=== PATIENT | female | born 1980 | race Caucasian/White ===

== ENCOUNTER 2017-07-15 11:05 | Emergency (ER) | payer MEDICAID ==
[~2017-07-15] VITALS: Ht 152.4 cm; Wt 55.0 kg
[2017-07-15 12:07] VITALS: BP 132/85
[2017-07-15] MEDS ORDERED: CARBAMIDE PEROXIDE 6.5% OTIC SOLN 15ML EACH EAR ONE (13:45)
[2017-07-15] MEDS ORDERED: CARBAMIDE PEROXIDE 6.5% OTIC SOLN 15ML EACH EAR SCH (14:30)
== END 2017-07-15 15:30 | disposition home or self-care (01) ==
LOC: ER 11:40
DX: H61.23 Impacted cerumen, bilateral (principal); E78.00 Pure hypercholesterolemia, unspecified
CPT/HCPCS: 69209; 99282

== ENCOUNTER 2017-08-04 08:24 | Emergency (ER) | payer MEDICAID ==
[~2017-08-04] VITALS: Ht 152.4 cm; Wt 55.0 kg
[2017-08-04 10:31] LABS: CLARITY URINE CLOUDY (CLEAR); COLOR URINE YELLOW (YELLOW); KETONES URINE NEGATIVE (NEGATIVE); LEUKOCYTE ESTERASE URINE 3+ (NEGATIVE); NITRITE URINE POSITIVE (NEGATIVE); OCCULT BLOOD URINE 3+ (NEGATIVE); PROTEIN URINE TRACE (NEGATIVE); SPECIFIC GRAVITY URINE 1.025 (1.005-1.030)
[2017-08-04 10:52] LABS: BASOPHILS % 0.4 % (0.0-2.0); EOSINOPHILS % 1.4 % (0.0-5.0); HEMATOCRIT. 40.3 % (36.0-48.0); HEMOGLOBIN. 13.3 g/dL (12.0-16.0); MEAN CORPUSCULAR HEMOGLOBIN 30.5 pg (28.0-32.0); MEAN CORPUSCULAR VOLUME 92.3 fL (81.0-99.0); MEAN PLATELET VOLUME 8.3 fl (7.4-10.4); MONOCYTES % 5.8 % (2.0-8.0); NEUTROPHILS % 75.4 % (40.0-76.0); PLATELET 289 x1000/uL (130-400); RED BLOOD CELL COUNT 4.36 mill/uL (4.2-5.4); RED CELL DISTRIBUTION WIDTH 13.1 % (11.6-14.6)
[2017-08-04 10:57] LABS: PROTHROMBIN TIME 10.7 sec (9.4-11.6)
[2017-08-04 11:04] LABS: HCG SCREEN NEGATIVE
[2017-08-04 11:07] LABS: CHLORIDE 105 mEq/L (98-107); ETHANOL BLOOD < 10 mg/dL
[2017-08-04 12:01] LABS: *AMPHETAMINES SCREEN URINE NEGATIVE (NEGATIVE); *BARBITURATES SCREEN URINE NEGATIVE (NEGATIVE); *BENZODIAZEPINES SCREEN URINE NEGATIVE (NEGATIVE); *COCAINE SCREEN URINE NEGATIVE (NEGATIVE); CANNABINOID URINE SCREEN NEGATIVE (NEGATIVE); METHADONE URINE SCREEN NEGATIVE (NEGATIVE); OPIATES URINE SCREEN NEGATIVE (NEGATIVE); PHENCYCLIDINE URINE SCREEN NEGATIVE (NEGATIVE)
[2017-08-04 12:16] VITALS: BP 124/56
== END 2017-08-04 13:27 | disposition home or self-care (01) ==
LOC: ER 08:39
DX: N39.0 Urinary tract infection, site not specified (principal); R11.2 Nausea with vomiting, unspecified; R10.13 Epigastric pain; R19.7 Diarrhea, unspecified; E78.00 Pure hypercholesterolemia, unspecified
CPT/HCPCS: 36415; 80053; 80305; 81001; 83690; 84703; 85025; 85610; 87077; 87086; 87186; 99284; G0482

== ENCOUNTER 2017-10-21 17:41 | Emergency (ER) | payer MEDICAID ==
[~2017-10-21] VITALS: Ht 157.5 cm; Wt 52.0 kg
[2017-10-21 17:48] VITALS: BP 131/80
== END 2017-10-21 19:07 | disposition left against medical advice (07) ==
LOC: ER 17:41
DX: R53.1 Weakness (principal); Z53.21 Procedure and treatment not carried out due to patient leaving prior to being seen by health care provider